=== PATIENT | male | born 1985 | race Caucasian/White ===

== ENCOUNTER 2017-05-17 23:43 | Emergency (ER) | payer OTHER ==
[~2017-05-17] VITALS: Ht 190.5 cm; Wt 136.4 kg
[2017-05-18 00:21] VITALS: BP 135/84; PULSE 93; RESP 18; O2SAT 97
--- NOTE | 2017-05-18 00:29 | ED.REPORT ---
HPI-Dental/Mouth Prob Date of Service May 18, 2017 ED Provider: Dr. Anton Pt is a generally healthy 32 y/o male presenting to the ED c/o dental pain onset 2 weeks ago. The patient has had a broken upper left molar tooth for the past 2 years and for the past 2 weeks he has been experiencing dental pain and recently developed mild facial swelling. His uncle is a dentist and he is planning on seeing him tomorrow. Pt denies SOB, neck swelling, fever, vomiting, dysphagia. Nursing Notes Stated Complaint: FACIAL SWELLING Chief Complaint: Dental Nursing Notes Reviewed: Yes Allergies: Coded Allergies: amoxicillin (Verified Allergy, Unknown, 05/18/17) Scheduled Clindamycin (Clindamycin) 300 Mg Capsule 600 MG PO TID Famotidine (Pepcid) 20 Mg Tablet 40 MG PO DAILY Scheduled PRN Ibuprofen (Ibuprofen) 600 Mg Tablet 600 MG PO TID PRN PRN For Pain General Time Seen by MD: 00:28 Chief Complaint Tooth pain Hx Obtained From: Patient Arrived By: Walk-in Onset Occurred: More than a week ago... (2 weeks) Symptom Duration: Since onset Location: : Tooth upper L molar Quality: Painful Severity: Current: Moderate Severity: Maximum: Moderate Recent Healthcare: Previous diagnosis Similar Sx Previous: Yes Past Medical History Past Medical History Dental caries Hypertension Past Surgical History None reported Smoking History Unknown if Ever Smoker Social History Other Social History: Good social support Ambulatory Status Independent Review of Systems Review of Systems Note: +facial swelling Constitutional: Denies: Fever Ears / Nose / Throat: Reports: Toothache, Denies: Sore throat, Throat swelling, Tongue swelling Respiratory: Denies: Wheezing GI: Denies: Dysphagia Complete sys rev & neg: except as marked. Physical Exam Initial Vital Signs Vital Signs (First) Date Time Temp Pulse Resp B/P Pulse Ox O2 Delivery O2 Flow Rate FiO2 05/18/17 00:21 36.5 93 18 135/84 97 Room Air Initial VS: Reviewed, Vital signs normal Head / Eyes: Atraumatic, Normocephalic Respiratory: No respiratory distress Cardiovascular: Intact distal pulses Abdomen / GI: No distention Extremities: Vascular intact, Neuro intact, No swelling Skin: Warm, Dry, No cyanosis Neurologic: Alert, Oriented, Nonfocal Psychiatric: Mood/affect normal, Behavior normal, Normal thought content ENT: Airway patent, Mucous membranes moist, Pharynx NL, No peritonsillar abscess, No pooling of secretions, No trismus Normal phonation Uvula midline Fractured tooth #15 with cavity visible down to pulp canal. Swelling of the lateral face. No visible drainable abscess Neck: Atraumatic, Supple, No meningismus, Full range of motion, No swelling General/Constitutional: Awake, Alert, No acute distress, Cooperative, Not toxic appearing Re-Eval/Medical Decision Med Decision/Clinical Course 32-year-old with chronic broken shoes, presents now with an abscess in his upper left jaw confined to the external portions of the face with no evidence of midline involvement or airway compromise. Begun with clindamycin as he is allergic to amoxicillin. Single dose Decadron tonight. Declines Toradol shot. Has a dental appointment tomorrow with his dentist, who is his uncle and will see him despite it being the weekend. Airway precautions discussed. Re-Evaluation/Progress : Time of Eval: 00:41 Re-Evaluation/Progress Note: Declining pain meds. F/U instructions and RTER warnings given. All questions addressed. Counseled Regarding: Diagnosis, Need for follow-up, When/why to return to ED Discharge & Departure Primary Impression: Dental abscess Disposition: Home Discharge Condition All VS Reviewed: Yes Condition: Stable Patient Instructions: Dental Abscess (ED) Additional Instructions: Begin clindamycin two capsules three times daily. Ibuprofen three times daily as needed for pain. Pepcid twice daily as long as you are on ibuprofen. Follow-up with your dentist tomorrow as planned. Return if any difficulty swallowing, speaking, or breathing. Referrals: Aniyah Melo ARNP (PCP) Elizabeth Centeno MD Scribe Attestation Portions of this note were transcribed by Clinton Anderson. I, Dr. Anton personally performed the history, physical exam and medical decision-making; I reviewed and confirmed the accuracy of the information in the transcribed note. copies to: Elizabeth Centeno MD; Aniyah Melo ARNP Roberts, Christopher W MD May 18, 2017 00:28 CLINTON ANDERSON May 18, 2017 00:33
[2017-05-18] MEDS ORDERED: CLIN-78 PO (00:35)
[2017-05-18] MEDS ORDERED: Dexamethasone 20 mg/2 mL Oral Solution PO ONE (00:35)
[2017-05-18] MEDS ORDERED: FAMO20T PO (00:36)
[2017-05-18] MEDS ORDERED: IBUP-1827 PO (00:36)
[2017-05-18 01:11] VITALS: BP 135/84; PULSE 93; RESP 18; O2SAT 97
== END 2017-05-18 01:10 | disposition home or self-care (01) ==
LOC: SED 05-18 00:19
DX: K04.7 Periapical abscess without sinus (principal); S02.5XXD Fracture of tooth (traumatic), subsequent encounter for fracture with routine healing; K02.9 Dental caries, unspecified; X58.XXXD Exposure to other specified factors, subsequent encounter; Y93.89 Activity, other specified; Y99.8 Other external cause status; Y92.9 Unspecified place or not applicable; I10 Essential (primary) hypertension; F17.200 Nicotine dependence, unspecified, uncomplicated; Z88.0 Allergy status to penicillin